=== PATIENT | male | born 1975 | race Caucasian/White ===

== ENCOUNTER 2017-06-16 10:19 | Emergency (ER) | payer OTHER ==
[~2017-06-16] VITALS: Ht 182.9 cm; Wt 101.2 kg
[2017-06-16] MEDS ORDERED: LISINOPRIL20 MG PO (10:54)
[2017-06-16] MEDS ORDERED: CLEOCIN300 MG PO (10:54)
[2017-06-16 11:55] LABS: BASOPHIL (%) 0.4 % (0-1); EOSINOPHIL (%) 0.4 % (0-5); HEMATOCRIT 43.1 % (38.0-50.0); HEMOGLOBIN 15.4 G/DL (12.5-16.6); IMMATURE GRANULOCYTE (%) 0.4 % (0.0-0.7); LYMPHOCYTE COUNT 2.1 K/uL (1.0-2.8); MCH 33.3 PG (29.0-34.0); MCHC 35.7 G/DL (30.0-36.0); MCV 93.1 FL (86-99); MONOCYTE (%) 5.7 % (3-12); MONOCYTE COUNT 0.5 K/uL (0-0.8); NEUTROPHIL (%) 68.1 % (45-76); NEUTROPHIL COUNT 5.6 K/uL (1.8-6.4); PLATELET COUNT 306 K/uL (156-360); RBC DIS.WIDTH-CV 11.8 % (11.8-14.6); RBC DIS.WIDTH-SD 39.8 % (39-53); RED BLOOD COUNT 4.63 M/uL (4.00-5.50); WHITE BLOOD COUNT 8.2 K/uL (4.1-10.2)
[2017-06-16 12:05] LABS: ALBUMIN 4.7 g/dL (3.2-4.8); CHLORIDE 105 mEq/L (99-109); POTASSIUM 3.9 mEq/L (3.7-5.4); SODIUM 139 mEq/L (136-147)
[2017-06-16 12:07] LABS: GLUCOSE 101 mg/dL (70-99)
[2017-06-16 12:08] LABS: TOTAL PROTEIN 7.7 g/dL (6.4-8.3)
[2017-06-16 12:09] LABS: TOTAL BILIRUBIN 0.6 mg/dL (0.0-1.0)
[2017-06-16 12:11] LABS: ALKALINE PHOSPHATASE 43 IU/L (3-129); CREATININE 0.9 mg/dL (0.6-1.3); GFR ESTIMATE (CALCULATED) > 59 mL/min/ (58.99-99999)
[2017-06-16 12:12] LABS: UREA NITROGEN (BUN) 13 mg/dL (9-23)
[2017-06-16 12:13] LABS: AST (GOT) 16 IU/L (2-34)
[2017-06-16 12:14] LABS: ALT (GPT) 26 IU/L (3-49)
[2017-06-16 12:31] LABS: ERTH.SED.RATE 7 MM/HR (0-15)
[2017-06-16 12:46] LABS: C-REACTIVE PROTEIN < 1.0 MG/L (0-10)
[2017-06-16 13:05] VITALS: BP 119/80
== END 2017-06-16 13:08 | disposition home or self-care (01) ==
LOC: EME 10:19
PROVIDERS: Emergency Medicine
DX: H53.8 Other visual disturbances (principal); R63.4 Abnormal weight loss; I10 Essential (primary) hypertension; R25.3 Fasciculation; R53.1 Weakness; M79.1 Myalgia; Z86.19 Personal history of other infectious and parasitic diseases; Z90.49 Acquired absence of other specified parts of digestive tract; R59.9 Enlarged lymph nodes, unspecified; Z53.29 Procedure and treatment not carried out because of patient's decision for other reasons
CPT/HCPCS: 80053; 85025; 85651; 86140; 99281; 99284